=== PATIENT | female | born 1950 | race Caucasian/White ===

== ENCOUNTER 2016-09-28 11:14 | Observation (INO) | payer MEDICARE ==
[~2016-09-28] VITALS: Ht 170.2 cm; Wt 73.0 kg
--- NOTE | 2016-09-28 11:28 | ERPDOC ---
Departure Disposition Decision Date: September 28, 2016 Disposition Decision Time: 13:10 Disposition: 02 TO [facility] Impression Impression Impression: Primary Impression: Chest pain, rule out acute myocardial infarction Severity: Moderate Condition: Stable Seen By: Physician only Problems/Meds/Labs Reviewed?: Yes Medications reviewed and manag: Yes Follow up care ordered?: Yes Mental Status: Alert, Oriented HPI - Chest Pain General Chief Complaint: Chest Pain Stated Complaint: CHEST RESTRICTION, HEAT WAVES, THIRSTY Time Seen by Provider: 11:28 Source: patient Exam Limitations: no limitations HPI - Chest Pain Initial Comments Patient is a 66-year-old female, last primary medical visit was 3 years ago had her cholesterol checked at that time it was "normal", patient has no past medical history with the exception of breast cancer takes no medications. Patient does have a significant family history of prior cardiac issues. Patient presents the ER for evaluation of chest tightness. Patient was driving her car today and developed chest tightness in a bandlike pattern across her chest with shortness of air. This waxed and waned over the course of time from 5-8/10, with mild warmth although she cannot specifically say diaphoresis and no nausea. Patient came to concerned so she presents to the ER. Currently complaining of 5/10 chest pain/pressure and tightness in a bandlike pattern. Occurred At: other (car) Onset/Timing: Rapid Duration: 1 hr Pain/Severity Scale: Now: 5/10, Worst: 8/10 Location: substernal, anterior R, anterior L Quality: pressure, other (bandlike) Associated Symptoms: diaphoresis, swelling/lump in chest Chest Pain Radiation: neck Nitro Today/Relief: 0.4 mg x 2, provided by ED, complete relief Aspirin Treatment Today: 81 mg x 4, provided by ED Prior Chest Pain/Cardiac Kati: no prior chest pain, no prior cardiac workup Allergies: Coded Allergies: No Known Drug Allergies (Verified Allergy, Unknown, 09/28/16) Past History Past Medical History Metabolic: cancer (breast cancer), DENIES: diabetes, hypercholesterolemia, hypertension, hypothyroidism Cardiac: DENIES: A-fib, CAD, CHF, [place] Respiratory: DENIES: COPD, asthma GI: DENIES: GERD, ulcers Hematologic: DENIES: anemia Surgical History Cardiac: DENIES: cardiac bypass, cardiac cath, radio ablation, valve replacement, vascular bypass Social History Smoking Status: Never smoker Substance Use Type: does not use Alcohol Intake: none Review of Systems Constitutional Constitutional: DENIES: appetite decrease, chills, dizziness, fever, weakness Eyes Vision: DENIES: double vision, loss of visual mckinley ENMT Sinuses: DENIES: congestion, rhinorrhea Jaw: DENIES: clicking Cardiovascular Cardiac: chest pain, DENIES: dyspnea on exertion Rhythm/Rate: DENIES: irregular beat, palpitations, tachycardia Pulmonary Respiratory: dyspnea, DENIES: cough, pleuritic chest pain, sputum, tachypnea GI Upper Abdomen: DENIES: nausea, pain, vomiting General: DENIES: frequency, urgency Musculoskeletal General: DENIES: cramps, pain, weakness Integumentary Skin: DENIES: color change, itching, rash Endocrine Endocrine: DENIES: heat/cold intolerance Hematologic/Lymphatic Hematologic/Lymphatic: DENIES: anemia Physical Exam General General Nourishment: well nourished, well developed General Body Habitus: well groomed Vitals and Pain First Documented Vital Signs Date Time Temp Pulse Resp B/P Pulse Ox O2 Delivery O2 Flow Rate FiO2 09/28/17 11:15 62 20 162/80 100 Room Air Weight: Kilograms: Height (feet): Height (inches): Triage Pain Scale: RN VS reviewed by Provider: Yes Eyes (brief) Eyes Brief: found: EOMI, PERRL ENMT (brief) ENMT Brief: FOUND: mucosa moist, normal dentition, NOT FOUND: nasal erythema, pharnyx erythema, tonsillar deviation Neck (brief) Neck: NOT FOUND: adenopathy, spasm Respiratory (brief) Respiratory: FOUND: clear all mckinley, equal bilaterally, NOT FOUND: rales, wheezes Cardiovascular (brief) Cardiac: FOUND: regular rate, regular rhythm Capillary Refill: <2 sec Abdomen (brief) Abdominal Brief: FOUND: soft Integumentary (brief) Integumentary Brief: FOUND: dry, pink, warm, NOT FOUND: rash Neurologic (brief) Neurological Brief: FOUND: CN w/o gross def to obs, motor-no gross deficits, sensory-no gross deficits Psychiatric (brief) Psychiatric Brief: FOUND: alert, oriented Differential Diagnoses Considering: Acute [place], Anxiety/Panic, Angina, Aortic Dissection, Bradycardia, CHF, Costochondritis, Esophageal Spasm, GERD, Pericarditis, Pleurisy, Pneumothorax, Pneumonia, Pulmonary Edema, Muscle Spasm Progress Results/Orders Orders Procedure Category Date Status Time EKG EKG 09/28/16 Taken 11:23 Cbc W/Auto LAB 09/28/16 Complete Diff-Reflex Manual 11:28 Cmp - Comprehensive LAB 09/28/16 Complete Metabolic 11:28 Probnp LAB 09/28/16 Complete 11:28 Troponin I W LAB 09/28/16 Complete Hemolysis Index 11:28 D-Dimer LAB 09/28/16 Complete 11:28 Magnesium LAB 09/28/16 Complete 11:28 Chest 1 View RAD 09/28/16 Resulted 11:28 Iv Lock (Ed Only) EDM 09/28/16 Transmitted 11:28 Aspirin (Asa) PHA 09/28/16 Complete 11:30 Nitroglycerin PHA 09/28/16 In Process (Nitrostat) 11:30 Place In Facility: ED ADM 09/28/16 Transmitted 13:07 Measure Vital Signs [facility] 09/28/16 In Process 13:07 Up In Room With Assist [facility] 09/28/16 In Process 13:07 Regular Diet DIET 09/28/16 Transmitted Dinner Iv [facility] (Nursing) [facility] 09/28/16 In Process 13:07 Prn Orders (Adult) PHA 09/28/16 In Process (May Use Prn Orders) 13:15 Ekg Prn [facility] 09/28/16 In Process 13:07 Nitroglycerin PHA 09/28/16 In Process (Nitrostat) 13:15 Telemetry [facility] 09/28/16 In Process 13:07 Troponin I W LAB 09/28/16 Logged Hemolysis Index 17:30 Troponin I W LAB 09/28/16 Logged Hemolysis Index 23:30 Troponin I W LAB 09/29/16 Verified Hemolysis Index 05:30 Enoxaparin (Lovenox) PHA 09/28/16 Complete 13:15 Lab Results Laboratory Tests Test 09/28/16 11:31 White Blood Count 6.2T/MM3 Red Blood Count 4.35M/MM3 Hemoglobin 13.5GM/DL Hematocrit 40.4% Mean Corpuscular Volume 92.9UM3 Mean Corpuscular Hemoglobin 31.0UUG Mean Corpuscular Hemoglobin Concent 33.4GM/DL RDW Standard Deviation 42.1FL Platelet Count 232T/MM3 Mean Platelet Volume 11.0UM3 Immature Granulocyte % (Auto) 0.2% Neutrophils (%) (Auto) 45.1% Lymphocytes (%) (Auto) 44.8% Monocytes (%) (Auto) 6.5% Eosinophils (%) (Auto) 2.6% Basophils (%) (Auto) 0.8% Absolute Immature Granulocyte (auto 0.01T/MM3 Absolute Neutrophils (auto) 2.8T/MM3 Absolute Lymphocytes (auto) 2.8T/MM3 Absolute Monocytes (auto) 0.4T/MM3 Absolute Eosinophils (auto) 0.2T/MM3 Absolute Basophils (auto) 0.1T/MM3 D-Dimer 214NG/ML Turbidity < 20 Sodium Level 144MEQ/L Potassium Level 3.7MEQ/L Chloride Level 105MEQ/L Carbon Dioxide Level 26MEQ/L Anion Gap 13MEQ/L Blood Urea Nitrogen 11.0MG/DL Creatinine 0.7MG/DL Glomerular Filtration Rate Calc 84 BUN/Creatinine Ratio 16RATIO Glucose Level 96MG/DL Calculated Osmolality 276MOSM/KG Calcium Level 9.6MG/DL Magnesium Level 2.0MG/DL Total Bilirubin 1.00MG/DL Icterus Index 3 Aspartate Amino Transf (AST/SGOT) 30U/L Alanine Aminotransferase (ALT/SGPT) 47U/L Alkaline Phosphatase 66U/L Troponin I < 0.012ng/ml [id number] Natriuretic Peptide 203PG/ML Total Protein 7.3G/DL Albumin 4.5G/DL Globulin 2.8G/DL Albumin/Globulin Ratio 1.6RATIO Chemistry Specimen Hemolysis < 15 Medications Current ED Medications Aspirin (ASA) 324 mg O ONCE PO Last administered on 09/28/16 11:28; Start at 11:30; Stop 09/28/16 at 11:31; Status DC Nitroglycerin (Nitrostat) 0.4 mg Q5MIN PRN SL CHEST PAIN Last administered on 11:41; Start 09/28/16 at 11:30 Miscellaneous Medication (May use PRN orders) PRN PRN MC ; Start 09/28/16 at 13:15 Nitroglycerin (Nitrostat) 0.4 mg Q5MIN PRN SL CHEST TIGHTNESS; Start 09/28/16 at 13:15 Enoxaparin Sodium (Lovenox) 75 mg O ONCE SQ ; Start 09/28/16 at 13:15; Stop at 13:16; Status DC Progress Progress Patient's pain alleviated by nitroglycerin 2, did have some mild radiation to the neck towards the end of her evaluation. Symptoms have now all resolved, patient was able to ambulate without pain in the emergency Department, however given the patient's description, medical history and other risk factors believe she would be high risk. Discussed case with Dr. Cruz, he will admit observation status chest pain rule out [place] for possible cath versus stress test. Repeat troponins, give Lovenox EKG EKG : Rate: 60-100 Rhythm: sinus [place]: normal QRS: normal Intervals: normal ST/T: non-specific changes Other: other (single PAC) Interpreted by: signing physician Xray Xray : Xray: CXR Portable Interpretation: Normal, Interpreted by JOSE Mohan MD September 28, 2016 11:28
[2016-09-28] MEDS ORDERED: ASPIRIN 81 MG CHEWABLE TABLET PO ONE (11:30)
[2016-09-28] MEDS: NITROGLYCERIN 0.4 MG SUBLINGUAL TABLET SL PRN ×2 (11:35→11:41)
[2016-09-28 11:38] LABS: BASOPHILS # (AUTO) 0.1 T/MM3 (0-0.2); BASOPHILS % (AUTO) 0.8 % (0-2); EOSINOPHILS # (AUTO) 0.2 T/MM3 (0-0.5); EOSINOPHILS % (AUTO) 2.6 % (0-4); HCT - HEMATOCRIT 40.4 % (36-46); HGB - HEMOGLOBIN 13.5 GM/DL (12-16); IMMATURE GRANULOCYTE # (AUTO) 0.01 T/MM3 (0.00-0.03); IMMATURE GRANULOCYTE % (AUTO) 0.2 % (0.0-0.5); LYMPHOCYTES # (AUTO) 2.8 T/MM3 (1-4.8); LYMPHOCYTES % (AUTO) 44.8 % (23-45); MEAN CORPUSCULAR HGB CONC(MCHC 33.4 GM/DL (31-37); MEAN CORPUSCULAR VOLUME 92.9 UM3 (80-100); MONOCYTES # (AUTO) 0.4 T/MM3 (0-0.8); MONOCYTES % (AUTO) 6.5 % (0-9.0); NEUTROPHILS #(AUTO)-ABSOLUTE 2.8 T/MM3 (1.8-7.7); NEUTROPHILS % (AUTO) 45.1 % (33-66); RED BLOOD COUNT 4.35 M/MM3 (4.00-5.20); WBC - WHITE BLOOD COUNT 6.2 T/MM3 (4.5-11.0)
[2016-09-28 11:47] LABS: ALBUMIN 4.5 G/DL (3.5-5.0); ALBUMIN/GLOBULIN RATIO 1.6 RATIO (1.1-2.2); ALKALINE PHOSPHATASE 66 U/L (38-126); ALT (SGPT) 47 U/L (9-52); ANION GAP 13 MEQ/L (5-15); AST (SGOT) 30 U/L (14-36); BUN/CREATININE RATIO 16 RATIO (6-26); CALCIUM 9.6 MG/DL (8.4-10.2); CHLORIDE 105 MEQ/L (98-107); CO2 - CARBON DIOXIDE 26 MEQ/L (22-30); CREATININE 0.7 MG/DL (0.7-1.2); GLOMERULAR FILTRATION RATE 84; GLUCOSE 96 MG/DL (65-110); POTASSIUM 3.7 MEQ/L (3.6-5); SODIUM 144 MEQ/L (134-144); TOTAL PROTEIN 7.3 G/DL (6.3-8.2)
--- NOTE | 2016-09-28 11:52 | DI ---
Indication: ITS.REASON: chest tightness cardiac eval PROCEDURE: CHEST 1 VIEW: Encounter: Initial Comparison: None FINDINGS: The lungs are clear. There is no abnormal airspace opacity, pleural effusion or pneumothorax identified. The heart size, pulmonary vasculature and mediastinum are within normal limits. No significant skeletal abnormality is seen. IMPRESSION: No acute cardiopulmonary abnormality. .
[2016-09-28 11:58] LABS: PROBNP 203 PG/ML (0-175)
[2016-09-28] MEDS ORDERED: NO ROUTINE MEDS (12:07)
[2016-09-28] MEDS ORDERED: ENOXAPARIN 80 MG/0.8 ML INJECTION SQ ONE (13:15)
[2016-09-28] MEDS ORDERED: NITROGLYCERIN 0.4 MG SUBLINGUAL TABLET SL PRN (13:15)
[2016-09-28] MEDS ORDERED: PRN ORDERS MC (13:15)
--- NOTE | 2016-09-28 13:35 | NUR ---
ADMIT/REPORT PT ADMIT TO ROOM #[id number]. PT TO ROOM VIA WHEEL CHAIR. PT INDEPENDENTLY TRANSFERRED FROM WHEEL CHAIR TO BED - GAIT STABLE, NO SIGN OF DISTRESS. ARMINDA ALLEN GIVEN REPORT AND AT BEDSIDE TO RECEIVE PT.
[2016-09-28 13:45] VITALS: PULSE 59
[2016-09-28 13:49] VITALS: Ht 170.2 cm; Wt 73.0 kg
[2016-09-28 14:01] VITALS: BP 140/64; PULSE 59; RESP 18; TEMP 98.6; O2SAT 97
[2016-09-28 20:00] VITALS: PULSE 58
[2016-09-29 04:07] VITALS: BP 119/67; PULSE 51; RESP 12; TEMP 97; O2SAT 99
[2016-09-29] MEDS ORDERED: OMEPRAZOLE 20 MG CAPSULE PO SCH (06:30)
[2016-09-29 07:42] VITALS: BP 151/79; PULSE 62; RESP 20; TEMP 97.2; O2SAT 98
[2016-09-29 08:36] VITALS: PULSE 55
--- NOTE | 2016-09-29 09:30 | NUR ---
PAOLA CM IN TO VISIT WITH PT. SHE IS ALERT AND ORIENTED. SHE PLANS TO RETURN HOME. SHE DENIES DC NEEDS FOR HERSELF. SHE INQUIRES IF CM CAN GIVE HER INFORMATION ABOUT HHS/ HOSPICE, INCOME BASED HOUSING AND MEDICAID. 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 HE HAS HEALTH CONCERNS. SHE FEELS THAT THIS IS A GREAT STRESSOR IN HER LIFE AT THIS TIME AND FEELS THAT THE STRESS CONTRIBUTED TO HER EPISODE OF CHEST PAIN. PAOLA VISITS ABOUT OPTIONS WITH HER AND GIVES HER THE REQUESTED INFORMATION. PAOLA GIVES THE PATIENT HER CONTACT INFORMATION AND ENCOURAGES HER TO CONTACT CM IF DC NEEDS [facility] FOR HERSELF OR IF SHE NEEDS FURTHER ASSISTANCE FOR HER BROTHER. SHE VERBALIZED UNDERSTANDING. LACE SCORE IS 4. Addendum: 09/29/16 at 0938 by ANA SAENZ RN Amended: Links added.
[2016-09-29] MEDS ORDERED: REGADENOSON 0.4mg/5ml INJECTION IV ONE (09:36)
[2016-09-29] MEDS ORDERED: SALINE FLUSH 10ml SYRINGE ONE (09:36)
[2016-09-29] MEDS ORDERED: OMEP20CA10 PO (16:52)
[2016-09-29] MEDS ORDERED: NITR0.4T SL (16:52)
[2016-09-29 17:04] VITALS: BP 151/72; PULSE 60; RESP 16; TEMP 98; O2SAT 100
--- NOTE | 2016-09-29 18:00 | NUR ---
DISMISSAL PT DISMISSED HOME TODAY. PT GIVEN INSTRUCTIONS RELATED TO DIET, ACTIVITY, HOME MEDICATIONS, NEW PRESCRIPTIONS, FOLLOW UP APPOINTMENTS AND REASONS TO CALL THE DOCTOR. PT DID NOT HAVE ANY QUESTIONS RELATED TO CARE AT THIS POINT. PT'S IV DISCONTINUED PRIOR TO DISMISSAL, CATHETER TIP INTACT. PT INSTRUCTED TO CALL STAFF WITH ANY QUESTIONS RELATED TO THEIR CARE. PT LEFT THE UNIT VIA AMBULATION AND LEFT THE HOSPITAL VIA THE FRONT ENTRANCE.
--- NOTE | 2016-09-29 18:45 | HPF ---
CHIEF COMPLAINT Chest pressure. HISTORY OF PRESENT ILLNESS Mrs. Bartholomew is a very pleasant 66-year-old female without prior known heart disease. She has not seen a doctor for over three years. Her cholesterol check at that time was normal. She had been in her previous state of health until this morning. She was coordinating a birthday green party, driving out town and going to different places. While driving, around 11 a.m. she started experiencing chest tightness. It felt like a rubber band, a constrictive type feeling (patient makes a partial fist with her hand while describing her symptoms). This pain gradually got worse and she decided to come to the emergency room. She had radiation to her back but was not sure if her shoulders were involved. As she was thinking of heart pain and needing to come to the hospital she did feel a hot flash with it. There was associated mild nausea but no additional radiation of the chest pain. No shortness of breath. No palpitations, dizziness or syncope. She came to the emergency room. Total duration of the pain was about 40-45 minutes and the pain quickly resolved following sublingual nitroglycerin x 2 and an aspirin. She did walk from her car in the parking lot into the hospital and that made her feel somewhat better. The patient denies any history of high cholesterol, hypertension or diabetes. She is a vegetarian. She goes swimming 45 minutes three times a week without problems. She did walk this morning, two miles, without problems. In the emergency room her workup was negative but, of course, the concern was for prolonged chest tightness that was responsive to nitroglycerin and patient having a positive family history. She was advised on admission for observation and she was in agreement. When I saw her she remained chest pain-free since admission to the ER and reported no further problems. The pain was rated 4-7/10 earlier. PAST MEDICAL HISTORY/PAST SURGICAL HISTORY Breast cancer. REVIEW OF SYSTEMS She says for the past two weeks she has had some intermittent heartburn, worse with food, a little bit of bloating in her stomach in the periumbilical area that she felt yesterday. No abdominal pain otherwise. No hematochezia, melena. No vomiting. No hematemesis. No fever, chills or night sweats. No TIA or stroke-like symptoms. No cough, phlegm production, dyspnea, wheezing, orthopnea, PND or lower extremity edema. No dysuria or hematuria. No vaginal bleed. No skin rash, discoloration or itch. No problems with depression or anxiety. Denies joint pain or swelling. SOCIAL HISTORY Never-smoker. She drinks one glass of wine every evening. She is a vegetarian. She is . FAMILY HISTORY Positive for heart disease in multiple members. Her father at age 65 from heart disease as a result of his third heart attack. Her younger brother was diagnosed with CHF. Her mother also had CHF. HOME MEDICATIONS Only vitamin B. ALLERGIES None. PHYSICAL EXAM GENERAL: Alert and oriented x 3, healthy-appearing. She looks younger than her stated age. Does not look in acute cardiorespiratory distress. VITAL SIGNS: All stable and normal. Afebrile. HEENT: Atraumatic, normocephalic. NECK: Jugular venous pressure not elevated. Carotid upstrokes without bruits. CHEST: Perfectly clear to auscultation bilaterally. HEART: Regular rate and rhythm. No murmurs, gallops, rubs or clicks. ABDOMEN: Soft, nontender, nondistended. Normoactive bowel sounds are present. EXTREMITIES: Lower extremities are without pitting edema. No rash. Peripheral pulses are intact. Joints are without swelling or deformity. NEUROLOGIC: Without focal sensorimotor deficits. Cranial nerves are intact. PSYCHIATRIC: Mood and affect are normal. DIAGNOSTIC DATA (from ER) EKGs normal. CBC normal. Chemistry normal. Troponin normal. ProBNP elevated at 203. Liver enzymes are normal. Coags are normal. D-dimer 214. Chest x-ray normal. IMPRESSION 1. Squeezing chest tightness responsive to sublingual nitroglycerin, suggestive of esophageal spasm versus unstable angina. 2. Positive family history for premature coronary artery disease. DISCUSSION/PLAN 1. Admit to hospital telemetry bed outpatient status to rule out [place]. I discussed with her the pros and cons of noninvasive versus invasive strategy, namely an exercise stress nuclear scan versus heart catheterization. I feel it is quite reasonable to proceed with a stress nuclear scan if objectively no new changes show during her hospital stay. She voiced a strong preference to proceed that way. Will rule out [place] by serial troponins and EKGs. 2. I am going to place her on Prilosec in the hospital. FILEMON
--- NOTE | 2016-09-30 09:42 | ESTF ---
DATE OF SERVICE 09/29/2016 PROCEDURE Exercise stress nuclear scan. INDICATIONS Chest pressure responsive to sublingual nitroglycerin in a patient with a positive family history. DESCRIPTION OF PROCEDURE Patient was injected with techetium-99m sestamibi dose at rest per protocol and then exercised per Adelso protocol. Appropriate blood pressure and heart rate response to exercise. Blood pressure at rest was normal. Peak heart rate achieved at exercise was 100% of age predicted maximum heart rate at 8 minutes on Adelso protocol. No angina. Rest EKG is normal. With exercise there was no significant arrhythmia. No ST depression or elevation of ischemia. No angina. Stress and rest perfusion images show normal myocardial perfusion scan, very mild anterior septal reduced uptake consistent with breast tissue attenuation. Normal gaited wall motion. Normal systolic function in both stress and rest images and normal ejection fraction at 56% and 65% in order. IMPRESSION Maximal exercise stress nuclear scan clinically, electrically, and scintigraphically negative for ischemia with normal LV ejection fraction and very good functional capacity. MTDD
--- NOTE | 2016-09-30 11:14 | DSF ---
CHIEF COMPLAINT Chest pain. HISTORY OF PRESENT ILLNESS Mrs. Bartholomew is a most pleasant, 66-year-old female without prior known heart disease. She presented to the emergency room with chest tightness. It felt like a band of squeezing pain across. It radiated to the back of her neck. The pain resolved with sublingual nitroglycerin and aspirin in the emergency room quickly. It was associated with mild nausea. Pain was not exertional. She has had some vague GI symptoms for the proceeding two weeks. She has a positive strong family history of coronary artery disease. So after evaluation in the ER, it was decided to admit her for further observation due to prolonged chest pain responsive to nitroglycerin and her family history. Patient was in agreement, admitted to telemetry bed outpatient. [place] was ruled out. She had no recurrence of chest pain. She was ambulatory. Proceeded with exercise stress nuclear scan, which was normal. She remained ambulatory without further chest pain. Tolerated advancing her meals well. At time of discharge, she was feeling quite well. DISCHARGE DIAGNOSES 1. Chest pain, noncardiac, suspected esophageal spasm. 2. Esophageal spasm and atypical gastroesophageal reflux disease. 3. Positive family history of coronary artery disease activity as tolerated. DIET Heart healthy. FOLLOWUP 1. Followup plans with myself in two weeks. 2. Advised to establish with a primary care physician for general medical care. Several names were suggested to her. DISCHARGE MEDICATIONS See medication reconciliation form. Prilosec 20 mg p.o. daily. Sublingual nitroglycerin 0.4 mg p.r.n. ADDITIONAL INSTRUCTIONS Patient is to return to emergency room should she have recurrence of chest pain or pressure that persists following the third sublingual nitro. FILEMON
--- NOTE | 2016-10-03 13:45 | NUR ---
ATTEMPTED POST HOSPITAL FOLLOW UP PHONE CALL #1, LEFT VOICE MESSAGE TO RETURN CALL TO CM.
== END 2016-09-29 18:00 | disposition home or self-care (01) ==
LOC: ED 11:14 → EDHOLD 13:32 → SRG 13:35
PROVIDERS: ADMIT Internal Medicine Cardiovascular Disease; ATTEND Internal Medicine Cardiovascular Disease
DX: R07.89 Other chest pain (principal); K22.4 Dyskinesia of esophagus; K21.9 Gastro-esophageal reflux disease without esophagitis; R61 Generalized hyperhidrosis; Z82.49 Family history of ischemic heart disease and other diseases of the circulatory system; Z85.3 Personal history of malignant neoplasm of breast
CPT/HCPCS: 36000; 36415; 71010; 80053; 83735; 83880; 84484; 85025; 85379; 93005; 93017; 96372; 99284; A9270; G0378; J1650; 99218